=== PATIENT | female | born 1960 | race Caucasian/White ===

== ENCOUNTER → 2016-10-31 | Outpatient (CLI) | payer MEDICAID ==
[~2016-10-31] MED LIST: LIDOCAINE 1% 30 ML SDV ONE; NA BICARBONATE 50 MEQ/50 ML VIAL ONE
--- NOTE | 2016-10-31 15:23 | US ---
Ultrasound left chest HISTORY: Breast carcinoma, left pleural effusion. FINDINGS: Ultrasound imaging of the left posterior hemithorax was performed and demonstrates a small loculated pleural effusion measuring 7 x 4 cm, which appears smaller than recent [facility] CT suggesting r esolving left pleural effusion. However, there are internal echoes and some septations suggesting com plex residual fluid. This appears small and has increased risk for pneumothorax. Risks and recommenda tions were discussed with patient and Dr. Angi Blake and it was elected to not perform the thoracentes is at this time. IMPRESSION: 1. Decreasing small complex left posterior pleural effusion. 2. Thoracentesis not performed at this time due to increased risk of pneumothorax. Findings and recommendations have been discussed with the patient who agrees with the plan. Findings and recommendations discussed with Dr. Angi Blake today.
== END ==
LOC: FIMAGING 11:49
PROVIDERS: ATTEND Internal Medicine Hematology & Oncology
DX: J90 Pleural effusion, not elsewhere classified (principal); Z85.3 Personal history of malignant neoplasm of breast; Z53.8 Procedure and treatment not carried out for other reasons

== ENCOUNTER → 2016-12-26 | Outpatient (CLI) | payer MEDICAID | LOC: FIMAGING 08:19 | PROVIDERS: ATTEND Internal Medicine Hematology & Oncology | DX: C50.919 Malignant neoplasm of unspecified site of unspecified female breast (principal); M89.8X8 Other specified disorders of bone, other site | CPT/HCPCS: 78306; A9503 ==

== ENCOUNTER → 2017-05-15 | Outpatient (CLI) | payer MEDICAID | LOC: CIMAGING 15:42 | PROVIDERS: ATTEND Physician Assistant | DX: N13.2 Hydronephrosis with renal and ureteral calculous obstruction (principal); D25.9 Leiomyoma of uterus, unspecified; Z85.3 Personal history of malignant neoplasm of breast; Z87.442 Personal history of urinary calculi | CPT/HCPCS: 76770-PO ==

== ENCOUNTER → 2017-05-23 | Outpatient (CLI) | payer MEDICAID | LOC: FIMAGING 08:37 | PROVIDERS: ATTEND Physician Assistant | DX: C50.112 Malignant neoplasm of central portion of left female breast (principal); C79.51 Secondary malignant neoplasm of bone; C78.2 Secondary malignant neoplasm of pleura | CPT/HCPCS: 78306; A9503 ==

== ENCOUNTER → 2017-09-25 | Outpatient (CLI) | payer MEDICAID | LOC: FIMAGING 07:40 | PROVIDERS: ATTEND Physician Assistant | DX: C50.812 Malignant neoplasm of overlapping sites of left female breast (principal); M95.4 Acquired deformity of chest and rib | CPT/HCPCS: 78306; A9503 ==

== ENCOUNTER → 2018-01-26 | Outpatient (CLI) | payer MEDICAID | LOC: FIMAGING 07:58 | PROVIDERS: ATTEND Physician Assistant | DX: C79.51 Secondary malignant neoplasm of bone (principal); C50.812 Malignant neoplasm of overlapping sites of left female breast | CPT/HCPCS: 78306; A9503 ==

== ENCOUNTER → 2018-09-26 | Outpatient (CLI) | payer MEDICAID | LOC: FIMAGING 10:06 | PROVIDERS: ATTEND Physician Assistant | DX: C50.812 Malignant neoplasm of overlapping sites of left female breast (principal) | CPT/HCPCS: 78306; A9503 ==

== ENCOUNTER → 2019-01-21 | Outpatient (CLI) | payer OTHER | LOC: FIMAGING 09:07 | PROVIDERS: ATTEND Physician Assistant | DX: C79.51 Secondary malignant neoplasm of bone (principal); C78.2 Secondary malignant neoplasm of pleura; Z85.3 Personal history of malignant neoplasm of breast | CPT/HCPCS: 78306; A9503; 86300-90 ==